=== PATIENT | female | born 1960 | race Caucasian/White ===

== ENCOUNTER 2016-07-02 22:12 | Emergency (ER) | payer MEDICAID ==
[~2016-07-02] VITALS: Ht 165.1 cm; Wt 65.0 kg
[~2016-07-02 22:12] MED LIST: IBUP100T3
[2016-07-02 23:40] LABS: BLOOD UREA NITROGEN 5 mg/dL (7-18)
[2016-07-03 04:55] VITALS: BP 121/62
== END 2016-07-03 04:56 | disposition home or self-care (01) ==
LOC: ED 07-03 04:49
DX: F10.120 Alcohol abuse with intoxication, uncomplicated (principal); Z88.0 Allergy status to penicillin
CPT/HCPCS: 36415; 70450; 71010; 72125; 80048; 80307; 82040; 85025; 93005

== ENCOUNTER 2016-07-21 20:02 | Emergency (ER) | payer MEDICAID ==
[~2016-07-21] VITALS: Ht 162.6 cm; Wt 55.0 kg
[2016-07-21] MEDS ORDERED: SODIUM CHLORIDE FLUSH 10ML SYR IVF ONE (21:00)
[2016-07-21] MEDS ORDERED: SODIUM CHLORIDE 0.9% 1,000ML IVBOLUS ONE (21:00)
[2016-07-21 21:26] LABS: ASPARTATE AMINO TRANSFERASE 32 U/L (15-37); BLOOD UREA NITROGEN 8 mg/dL (7-18)
[2016-07-21 23:45] VITALS: BP 104/62
== END 2016-07-21 23:47 | disposition home or self-care (01) ==
LOC: ED 23:07
DX: S09.90XA Unspecified injury of head, initial encounter (principal); S16.1XXA Strain of muscle, fascia and tendon at neck level, initial encounter; R10.13 Epigastric pain; Y04.0XXA Assault by unarmed brawl or fight, initial encounter; Y93.89 Activity, other specified; Y92.410 Unspecified street and highway as the place of occurrence of the external cause; Y99.8 Other external cause status
CPT/HCPCS: 36415; 70450; 71020; 72125; 76700; 80053; 80307; 83690; 85025; J7030; 96360

== ENCOUNTER 2017-01-04 10:37 | Inpatient (IN) | payer MEDICAID ==
[~2017-01-04] VITALS: Ht 162.6 cm; Wt 53.6 kg
[2017-01-04] MEDS ORDERED: SODIUM CHLORIDE 0.9% 1,000ML IVBOLUS ONE ×2 (12:30)
[2017-01-04 12:51] LABS: IS PT STATUS REG ER OR PRE ER? YES
[2017-01-04 12:54] LABS: DIFF TOTAL CELLS COUNTED 100 CELL DIFF; HEMATOCRIT 48.5 % (34.6-47.8); HEMOGLOBIN 16.6 g/dL (11.7-16.4); WHITE BLOOD COUNT 4.4 x10^3/uL (3.4-10)
[2017-01-04 12:58] LABS: ANISOCYTOSIS 1+; VERIFY COUNTS? YES
[2017-01-04 13:01] LABS: LARGE PLATELETS 1+
[2017-01-04 13:20] LABS: ASPARTATE AMINO TRANSFERASE 92 U/L (15-37); BLOOD UREA NITROGEN 4 mg/dL (7-18)
[2017-01-04] MEDS ORDERED: LORazepam 1MG TABLET ONE (17:24)
[2017-01-04] MEDS ORDERED: LORazepam 1MG TABLET PO ONE (17:30)
[2017-01-04] MEDS ORDERED: LORazepam 2 MG/ML, 1ML ONE (18:57)
[2017-01-04] MEDS ORDERED: LORazepam 2 MG/ML, 1ML IVPush PRN ×2 (19:00→20:00)
[2017-01-04] MEDS ORDERED: THIAMINE IV ONE (19:30)
[2017-01-04] MEDS ORDERED: MAGNESIUM SULFATE IV ONE (19:30)
[2017-01-04] MEDS ORDERED: [UNRECOGNIZED DRUG - OTHER] IV ONE (19:30)
[2017-01-04] MEDS ORDERED: MVI ADULT IV ONE (19:30)
[2017-01-04] MEDS ORDERED: THIAMINE 100 MG, MVI ADULT 10 ML, FOLIC ACID 1 MG in D5%-0.9% NACL 1,000 ML IV SCH (20:00)
[2017-01-04] MEDS ORDERED: ONDANSETRON 2MG/ML, 2ML IVPush PRN (20:00)
[2017-01-04] MEDS ORDERED: hydrALAzine 20 MG/ML, 1ML IVPush PRN (20:00)
[2017-01-04 21:00] VITALS: BP 147/76
[2017-01-04] MEDS ORDERED: THIAMINE 100 MG, MVI ADULT 10 ML in D5%-0.9% NACL 1,000 ML IV SCH (21:01)
[2017-01-04] MEDS: FOLIC ACID 1 MG TABLET PO SCH (22:13)
[2017-01-04] MEDS: ENOXAPARIN 40 MG/0.4 ML SQ SCH (22:13)
[2017-01-04] MEDS: D5%-0.9% NACL 1,000 ML IV SCH (23:54)
[2017-01-05 01:48] VITALS: BP 150/73
[2017-01-05 05:40] LABS: HEMATOCRIT 38.4 % (34.6-47.8); HEMOGLOBIN 13.3 g/dL (11.7-16.4); WHITE BLOOD COUNT 5.1 x10^3/uL (3.4-10)
[2017-01-05 05:49] LABS: ASPARTATE AMINO TRANSFERASE 77 U/L (15-37); BLOOD UREA NITROGEN 4 mg/dL (7-18)
[2017-01-05] MEDS: D5%-0.9% NACL 1,000 ML IV SCH (05:57)
[2017-01-05 06:25] LABS: DIFF TOTAL CELLS COUNTED 100 CELL DIFF
[2017-01-05 06:51] LABS: VERIFY COUNTS? YES
[2017-01-05 06:53] LABS: ANISOCYTOSIS 1+
[2017-01-05 07:46] VITALS: BP 152/74
[2017-01-05] MEDS: FOLIC ACID 1 MG TABLET PO SCH (09:48)
[2017-01-05] MEDS: ACETAMINOPHEN 325 MG TABLET PO PRN ×3 (09:51→19:36)
[2017-01-05] MEDS ORDERED: POTASSIUM CHLORIDE 40 MEQ in D5%-0.9% NACL 1,000 ML IV SCH (10:53)
[2017-01-05] MEDS ORDERED: MAGNESIUM SULFATE PMX 2GM/50ML 50 ML IV ONE (11:00)
[2017-01-05] MEDS: CHLORDIAZEPOXIDE 25 MG CAPSULE PO SCH ×3 (11:55→20:59)
[2017-01-05 13:56] VITALS: BP 153/74
[2017-01-05] MEDS: POTASSIUM CHLORIDE 40 MEQ in D5%-0.9% NACL 1,000 ML IV SCH ×2 (17:11→23:38)
[2017-01-05] MEDS ORDERED: THIAMINE 100 MG, MVI ADULT 10 ML in D5%-0.9% NACL 1,000 ML IV SCH (19:30)
[2017-01-05 20:00] VITALS: BP 130/72
[2017-01-05] MEDS: ENOXAPARIN 40 MG/0.4 ML SQ SCH (20:59)
[2017-01-06 02:00] VITALS: BP 139/77
[2017-01-06 05:39] LABS: HEMATOCRIT 39.3 % (34.6-47.8); HEMOGLOBIN 13.6 g/dL (11.7-16.4); WHITE BLOOD COUNT 3.7 x10^3/uL (3.4-10)
[2017-01-06 06:15] LABS: ASPARTATE AMINO TRANSFERASE 51 U/L (15-37); BLOOD UREA NITROGEN 4 mg/dL (7-18)
[2017-01-06 07:38] VITALS: BP 147/87
[2017-01-06] MEDS: POTASSIUM CHLORIDE 40 MEQ in D5%-0.9% NACL 1,000 ML IV SCH ×2 (07:46→19:36)
[2017-01-06] MEDS: FOLIC ACID 1 MG TABLET PO SCH (08:10)
[2017-01-06] MEDS: CHLORDIAZEPOXIDE 25 MG CAPSULE PO SCH (08:10)
[2017-01-06] MEDS: THIAMINE 100MG TABLET PO SCH (08:10)
[2017-01-06] MEDS: POTASSIUM CHLORIDE 20 MEQ TAB.ER.PRT PO SCH ×2 (08:10→17:59)
[2017-01-06] MEDS: NEUTRA PHOS K 250 MG TABLET PO SCH ×3 (08:10→21:00)
[2017-01-06] MEDS: MULTIVITAMIN 1 TABLET PO SCH (08:10)
[2017-01-06 12:40] VITALS: BP 147/78
[2017-01-06] MEDS: ACETAMINOPHEN 325 MG TABLET PO PRN ×2 (16:07→21:16)
[2017-01-06 18:48] VITALS: BP 136/61
[2017-01-06] MEDS: ENOXAPARIN 40 MG/0.4 ML SQ SCH (21:01)
[2017-01-07] MEDS: POTASSIUM CHLORIDE 40 MEQ in D5%-0.9% NACL 1,000 ML IV SCH ×2 (02:31→10:35)
[2017-01-07 02:49] VITALS: BP 146/76
[2017-01-07 05:50] LABS: BLOOD UREA NITROGEN 5 mg/dL (7-18)
[2017-01-07 05:53] LABS: ASPARTATE AMINO TRANSFERASE 75 U/L (15-37)
[2017-01-07 06:35] VITALS: BP 160/77
[2017-01-07] MEDS: ACETAMINOPHEN 325 MG TABLET PO PRN ×2 (08:06→19:54)
[2017-01-07] MEDS: MULTIVITAMIN 1 TABLET PO SCH (08:06)
[2017-01-07] MEDS: THIAMINE 100MG TABLET PO SCH (08:06)
[2017-01-07] MEDS: FOLIC ACID 1 MG TABLET PO SCH (08:06)
[2017-01-07] MEDS: POTASSIUM CHLORIDE 20 MEQ TAB.ER.PRT PO SCH (08:06)
[2017-01-07 12:45] VITALS: BP 141/79
[2017-01-07] MEDS: ENOXAPARIN 40 MG/0.4 ML SQ SCH (19:56)
[2017-01-07 20:00] VITALS: BP 135/72
[2017-01-08 01:25] VITALS: BP 150/80
[2017-01-08] MEDS ORDERED: THIA100T6 PO (07:40)
[2017-01-08] MEDS ORDERED: FOLI-17 PO (07:40)
[2017-01-08] MEDS ORDERED: MULT1TAB60 PO (07:40)
[2017-01-08 07:52] VITALS: BP 154/84
[2017-01-08] MEDS ORDERED: MAGNESIUM SULFATE PMX 4GM/100M 100 ML IV ONE (08:00)
[2017-01-08] MEDS: FOLIC ACID 1 MG TABLET PO SCH (08:49)
[2017-01-08] MEDS: MULTIVITAMIN 1 TABLET PO SCH (08:49)
[2017-01-08] MEDS: THIAMINE 100MG TABLET PO SCH (08:50)
[2017-01-08] MEDS: ACETAMINOPHEN 325 MG TABLET PO PRN (08:59)
[2017-01-08 13:04] VITALS: BP 152/85
== END 2017-01-08 15:17 | disposition home or self-care (01) | DRG 897 ==
LOC: ED 19:33 → EDIP 19:37 → SUATTDRO 19:42 → 4WST 20:56 → DCLOUNGE 01-08 15:05
PROVIDERS: ADMIT Hospitalist; ATTEND Hospitalist
DX: F10.239 Alcohol dependence with withdrawal, unspecified (principal); F10.220 Alcohol dependence with intoxication, uncomplicated; D69.6 Thrombocytopenia, unspecified; T68.XXXA Hypothermia, initial encounter; E44.1 Mild protein-calorie malnutrition; E87.0 Hyperosmolality and hypernatremia; E83.39 Other disorders of phosphorus metabolism; E83.42 Hypomagnesemia; D75.89 Other specified diseases of blood and blood-forming organs; Z68.20 Body mass index [BMI] 20.0-20.9, adult; E87.6 Hypokalemia; F17.210 Nicotine dependence, cigarettes, uncomplicated; G89.29 Other chronic pain; I10 Essential (primary) hypertension; K70.9 Alcoholic liver disease, unspecified; Y90.8 Blood alcohol level of 240 mg/100 ml or more; Z86.73 Personal history of transient ischemic attack (TIA), and cerebral infarction without residual deficits; I25.2 Old myocardial infarction; X31.XXXA Exposure to excessive natural cold, initial encounter; Z88.0 Allergy status to penicillin
CPT/HCPCS: 36415; 71010; 80053; 80307; 82607; 82746; 82962; 83735; 84100; 84443; 84484; 85025; 93005; 96361; 96374; J1650; J3411; J3475; J3480; J7042; G0479; J2060; J7030

== ENCOUNTER 2017-04-25 16:25 | Emergency (ER) | payer MEDICAID ==
[~2017-04-25] VITALS: Ht 162.6 cm; Wt 46.4 kg
[~2017-04-25 16:25] MED LIST changes: +FOLI-17 PO; +MULT1TAB60 PO; +THIA100T6 PO
[2017-04-25 18:21] VITALS: BP 127/63
== END 2017-04-25 18:33 | disposition home or self-care (01) ==
LOC: ED 18:20
DX: S00.83XA Contusion of other part of head, initial encounter (principal); S79.911A Unspecified injury of right hip, initial encounter; F10.120 Alcohol abuse with intoxication, uncomplicated; M25.511 Pain in right shoulder; Y08.89XA Assault by other specified means, initial encounter; Y93.89 Activity, other specified; Y92.89 Other specified places as the place of occurrence of the external cause; Y99.8 Other external cause status
CPT/HCPCS: 70450; 70486; 99284

== ENCOUNTER 2018-03-30 21:15 | Emergency (ER) | payer MEDICAID ==
[~2018-03-30] VITALS: Ht 160 cm; Wt 55.0 kg
[~2018-03-30 21:15] MED LIST changes: +AMOX1TAB64 PO; +DOXY100C2 PO; +IBUP200C8 PO; +MOXI3DRO2 EACHEYE; +NEO/3.5O7 EACHEYE; -THIA100T6 PO; +THIA100T67 PO
--- NOTE | 2018-03-30 21:37 | NUR ---
PT PLACED ON HEART MONITOR, BP CUFF, PULSE OX. PT WITH COOL EXTREMITIES, SHEET WITH CARL WARMER PROVIDED. CALL LIGHT WITHIN REACH. PT VERY INTOXICATED BUT A/O X 4. PT TEARFUL AT TIMES, STATES SHE DRINKS B/C OF HER PAIN. HX OF MULTIPLE INJURIES WITH CHRONIC PAIN.
--- NOTE | 2018-03-30 22:00 | NUR ---
REPORT TO CULLEN MONTALVO, TRANSFER OF CARE AT THIS TIME.
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
[2018-03-30] MEDS ORDERED: LIDOCAINE 2%, 20ML INFIL ONE (23:00)
[2018-03-30] MEDS ORDERED: IBUPROFEN 800 MG TABLET ONE (23:10)
[2018-03-30] MEDS ORDERED: LIDOCAINE-MPF 1%, 5ML ONE ×2 (23:10→23:56)
--- NOTE | 2018-03-30 23:16 | NUR ---
patient in bed. awaiting finger help and getting more coherent and oriented as alcohol metabolizing. rails up. monitor. got lidocaine for .
[2018-03-30] MEDS ORDERED: BUPIVACAINE 0.25% ONE (23:56)
[2018-03-31] MEDS ORDERED: IBUPROFEN 200 MG TABLET PO ONE
--- NOTE | 2018-03-31 01:42 | NUR ---
pa in room manually manipulating finger.
--- NOTE | 2018-03-31 01:59 | NUR ---
patient comfortable and sleeping. awaiting repeat xray finger.
--- NOTE | 2018-03-31 02:27 | NUR ---
radiology here to take images of hand.
--- NOTE | 2018-03-31 02:37 | NUR ---
pa in room manually manipulating hand with radiology at bedside. patient tolerating well.
[2018-03-31 03:12] VITALS: BP 118/78
--- NOTE | 2018-03-31 03:13 | NUR ---
discharge instructions provided for patient, shows understanding.
--- NOTE | 2018-03-31 03:29 | NUR ---
patient has ulnar guttar splint on, RICE teaching done and follow up teaching regarding ortho care given. got her clothes as hers were wet from a fall and got her a cab voucer to record st.
== END 2018-03-31 03:30 | disposition home or self-care (01) ==
LOC: ED 23:57
DX: S63.296A Dislocation of distal interphalangeal joint of right little finger, initial encounter (principal); F10.120 Alcohol abuse with intoxication, uncomplicated; Z72.9 Problem related to lifestyle, unspecified; I10 Essential (primary) hypertension; Z86.73 Personal history of transient ischemic attack (TIA), and cerebral infarction without residual deficits; X58.XXXA Exposure to other specified factors, initial encounter; Y93.89 Activity, other specified; Y92.89 Other specified places as the place of occurrence of the external cause; Y99.8 Other external cause status
CPT/HCPCS: 26770; 73140; 93005; 99284; J3490; 29130; 99283

== ENCOUNTER 2019-01-19 21:07 | Emergency (ER) | payer MEDICAID ==
[~2019-01-19 21:07] MED LIST changes: +MOXI3DRO19 EACHEYE; -MOXI3DRO2 EACHEYE
[2019-01-19] MEDS ORDERED: DEXAMETHASONE 4 MG TABLET ONE (23:17)
[2019-01-20] MEDS ORDERED: MAALOX/HYOSCYAMINE/LIDOCAINE 45 ML BTL ONE (00:35)
[2019-01-20 14:23] LABS: ALANINE AMINOTRANSFERASE 17 U/L (12-78); ALBUMIN 3.4 g/dL (3.4-5.0); ALKALINE PHOSPHATASE 102 U/L (45-117); ANION GAP 9 mmol/L (5-15); BILIRUBIN,TOTAL 0.2 mg/dL (0.2-1.0); CALCIUM 8.6 mg/dL (8.5-10.1); CHLORIDE 116 mmol/L (98-107); CREATININE 0.53 mg/dL (0.55-1.02); TOTAL PROTEIN 7.9 g/dL (6.4-8.2)
[2019-01-20 15:28] LABS: MEAN CORPUSCULAR HEMOGLOBIN 31.9 pg (27.0-34.8); MEAN CORPUSCULAR HGB CONC 32.4 g/dL (32.4-35.8); MEAN CORPUSCULAR VOLUME 98.5 fL (80-100); MEAN PLATELET VOLUME 8.6 fL (7.4-10.4); NEUTROPHILS % (AUTO) 69 % (42-75); PLATELET COUNT 248 x10^3/uL (130-400); RED BLOOD COUNT 3.97 x10^6/uL (3.82-5.3); RED CELL DISTRIBUTION WIDTH 18.3 % (9.6-15.2)
[2019-01-20 15:29] LABS: BASOPHILS # (AUTO) 0.12 x10^3/uL (0-0.1); BASOPHILS % (AUTO) 1 % (0-1); EOSINOPHILS # (AUTO) 0.09 x10^3/uL (0-0.4); EOSINOPHILS % (AUTO) 1 % (1-7); LYMPHOCYTES # (AUTO) 2.32 x10^3/uL (1-3.4); LYMPHOCYTES % (AUTO) 24 % (22-44); MD NO; MONOCYTES # (AUTO) 0.52 x10^3/uL (0.2-0.8); MONOCYTES % (AUTO) 5 % (2-9); NEUTROPHILS # (AUTO) 6.79 x10^3/uL (1.8-6.8)
== END 2019-01-20 01:54 ==
LOC: ED 01-20 01:00
DX: K29.20 Alcoholic gastritis without bleeding (principal); F10.220 Alcohol dependence with intoxication, uncomplicated; Y90.0 Blood alcohol level of less than 20 mg/100 ml; I10 Essential (primary) hypertension; I25.2 Old myocardial infarction
CPT/HCPCS: 36415; 71046; 80053; 80307; 83690; 83880; 85025; 99284

== ENCOUNTER 2019-02-24 08:27 | Emergency (ER) | payer MEDICAID ==
[~2019-02-24] VITALS: Ht 162.6 cm; Wt 54.0 kg
--- NOTE | 2019-02-24 09:23 | NUR ---
BEREAVEMENT COUNSELOR: PT TO ROOM FROM [facility]
[2019-02-24 09:36] LABS: MEAN CORPUSCULAR HEMOGLOBIN 31.9 pg (27.0-34.8); MEAN CORPUSCULAR HGB CONC 33.3 g/dL (32.4-35.8); MEAN CORPUSCULAR VOLUME 95.7 fL (80-100); MEAN PLATELET VOLUME 8.5 fL (7.4-10.4); PLATELET COUNT 194 x10^3/uL (130-400); RED BLOOD COUNT 4.02 x10^6/uL (3.82-5.3); RED CELL DISTRIBUTION WIDTH 17.4 % (9.6-15.2)
[2019-02-24 09:37] LABS: ALANINE AMINOTRANSFERASE 26 U/L (12-78); ALBUMIN 3.5 g/dL (3.4-5.0); ANION GAP 11 mmol/L (5-15); CALCIUM 8.7 mg/dL (8.5-10.1); CHLORIDE 101 mmol/L (98-107)
[2019-02-24 09:40] LABS: ALKALINE PHOSPHATASE 135 U/L (45-117); BILIRUBIN,TOTAL 1.4 mg/dL (0.2-1.0); CREATININE 0.68 mg/dL (0.55-1.02); TOTAL PROTEIN 8.4 g/dL (6.4-8.2)
[2019-02-24 10:05] LABS: MD YES
[2019-02-24 10:07] LABS: MICROSCOPIC AUTO
[2019-02-24 10:08] LABS: ANISOCYTOSIS 1+; BANDS%(MANUAL) 12 % (0-7); LYMPH#(MANUAL) 0.23 x10^3/uL (1-3.4); LYMPHS% (MANUAL) 1 % (22-44); METAMYELOCYTES# (MANUAL) 0.23 x10^3/uL (0-0); METAMYELOCYTES% (MANUAL) 1 % (0-1); MONOS#(MANUAL) 1.13 x10^3/uL (0.3-2.7); MONOS% (MANUAL) 5 % (2-9); SEG#(MANUAL) 18.23 x10^3/uL (1.8-6.8); SEGS% (MANUAL) 81 % (42-75)
[2019-02-24 10:09] LABS: <PLATELET ESTIMATE> ADEQUATE; <PLT MORPHOLOGY> NORMAL PLT MORPH
[2019-02-24 10:14] LABS: CULTURE INDICATED? YES
[2019-02-24] MEDS ORDERED: MORPHINE SULFATE 4 MG/ML, 1ML ONE (10:56)
[2019-02-24] MEDS ORDERED: ONDANSETRON 2MG/ML, 2ML ONE (10:56)
[2019-02-24] MEDS ORDERED: ONDANSETRON 2MG/ML, 2ML IVPush ONE (11:00)
[2019-02-24] MEDS ORDERED: SODIUM CHLORIDE 0.9% 1,000ML IVBOLUS ONE (11:00)
[2019-02-24] MEDS ORDERED: MORPHINE SULFATE 4 MG/ML, 1ML IVPush PRN (11:00)
--- NOTE | 2019-02-24 11:05 | NUR ---
PT IN BED, RESTING. DENIES ANY NEEDS OR CONCERNS AT THIS TIME. PT HAS DIFFICULT VENOUS ACCESS, ULTRASOUND IV PLACEMENT REQUESTED. CALL LIGHT IN REACH.
--- NOTE | 2019-02-24 11:50 | NUR ---
PT TO CT
[2019-02-24] MEDS ORDERED: OMNIPAQUE 350 MG/ML, 100ML BOTTLE ONE (12:01)
[2019-02-24] MEDS ORDERED: CEFTRIAXONE PMX 1GM/50ML 50 ML ONE (12:43)
[2019-02-24] MEDS ORDERED: AZITHROMYCIN 500 MG in SODIUM CHLORIDE 0.9% 250 ML IV ONE (13:00)
[2019-02-24] MEDS ORDERED: CEFTRIAXONE PMX 1GM/50ML 50 ML IV ONE (13:00)
[2019-02-24 15:22] VITALS: BP 141/76
== END 2019-02-24 15:24 | disposition home or self-care (01) ==
LOC: ED 12:14
DX: R11.2 Nausea with vomiting, unspecified (principal); E86.0 Dehydration; R19.7 Diarrhea, unspecified; J15.9 Unspecified bacterial pneumonia; I25.2 Old myocardial infarction; I10 Essential (primary) hypertension
CPT/HCPCS: 36415; 74021; 74177; 80053; 81001; 83690; 85025; 87040; 87086; 96361; 96365; 96366; 96367; 96375; 99284; J0456; J0696; J2270; J2405; J7030; J7050; Q9967

== ENCOUNTER 2019-03-16 10:21 | Emergency (ER) | payer MEDICAID ==
[~2019-03-16] VITALS: Ht 162.6 cm; Wt 54.8 kg
[2019-03-16 11:03] LABS: BASOPHILS # (AUTO) 0.08 x10^3/uL (0-0.1); BASOPHILS % (AUTO) 1 % (0-1); EOSINOPHILS # (AUTO) 0.12 x10^3/uL (0-0.4); EOSINOPHILS % (AUTO) 2 % (1-7); LYMPHOCYTES # (AUTO) 1.64 x10^3/uL (1-3.4); LYMPHOCYTES % (AUTO) 25 % (22-44); MD NO; MEAN CORPUSCULAR HEMOGLOBIN 30.2 pg (27.0-34.8); MEAN CORPUSCULAR HGB CONC 31.8 g/dL (32.4-35.8); MEAN CORPUSCULAR VOLUME 94.9 fL (80-100); MEAN PLATELET VOLUME 8.1 fL (7.4-10.4); MONOCYTES # (AUTO) 0.68 x10^3/uL (0.2-0.8); MONOCYTES % (AUTO) 10 % (2-9); NEUTROPHILS # (AUTO) 4.11 x10^3/uL (1.8-6.8); NEUTROPHILS % (AUTO) 62 % (42-75); PLATELET COUNT 464 x10^3/uL (130-400); RED BLOOD COUNT 3.86 x10^6/uL (3.82-5.3); RED CELL DISTRIBUTION WIDTH 16.8 % (9.6-15.2)
[2019-03-16 11:15] LABS: ALANINE AMINOTRANSFERASE 16 U/L (12-78); ALBUMIN 3.3 g/dL (3.4-5.0); CALCIUM 8.8 mg/dL (8.5-10.1); CREATININE 0.68 mg/dL (0.55-1.02)
[2019-03-16 11:17] LABS: ALKALINE PHOSPHATASE 131 U/L (45-117); BILIRUBIN,TOTAL 0.3 mg/dL (0.2-1.0); TOTAL PROTEIN 7.7 g/dL (6.4-8.2)
[2019-03-16 11:33] LABS: ANION GAP 10 mmol/L (5-15); CHLORIDE 111 mmol/L (98-107)
--- NOTE | 2019-03-16 12:56 | NUR ---
Pt to 25 from lobby
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
[2019-03-16] MEDS ORDERED: DIPHENHYDRAMINE 50 MG/ML, 1ML ONE (13:53)
[2019-03-16] MEDS ORDERED: PROCHLORPERAZINE 5 MG/ML, 2ML ONE (13:53)
[2019-03-16] MEDS ORDERED: KETOROLAC 30 MG/1 ML ONE (13:54)
[2019-03-16] MEDS ORDERED: DIPHENHYDRAMINE 50 MG/ML, 1ML IVPush ONE (14:00)
[2019-03-16] MEDS ORDERED: SODIUM CHLORIDE FLUSH 10ML SYR IVF ONE (14:00)
[2019-03-16] MEDS ORDERED: PROCHLORPERAZINE 5 MG/ML, 2ML IVPush ONE (14:00)
[2019-03-16] MEDS ORDERED: KETOROLAC 30 MG/1 ML IVPush ONE (14:00)
--- NOTE | 2019-03-16 14:06 | NUR ---
MEDICATED PER ORDERS, IV ESTABLISHED, OFF TO CT.
--- NOTE | 2019-03-16 14:22 | NUR ---
BREAK RN: PT RTD FROM CT. VSS, NAD NOTED. PT VERBALIZES PAIN NOW 08/08. CALL LIGHT W/I REACH
[2019-03-16 14:23] VITALS: BP 164/65
[2019-03-16] MEDS ORDERED: OMNIPAQUE 350 MG/ML, 75ML BOTTLE ONE (15:21)
== END 2019-03-16 15:13 | disposition home or self-care (01) ==
LOC: ED 14:33
DX: G43.911 Migraine, unspecified, intractable, with status migrainosus (principal); F17.200 Nicotine dependence, unspecified, uncomplicated; I10 Essential (primary) hypertension; I25.2 Old myocardial infarction
CPT/HCPCS: 36415; 70481; 80053; 85025; 96374; 96375; 99284; J0780; J1200; J1885; Q9967

== ENCOUNTER 2019-03-17 22:23 | Emergency (ER) | payer MEDICAID ==
[~2019-03-17] VITALS: Ht 162.6 cm; Wt 58.1 kg
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
[2019-03-18] MEDS ORDERED: ACETAMINOPHEN 325 MG TABLET PO ONE
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
[2019-03-18] MEDS ORDERED: ACETAMINOPHEN 325 MG TABLET ONE (00:03)
[2019-03-18 00:37] VITALS: BP 124/78
== END 2019-03-18 00:39 | disposition home or self-care (01) ==
LOC: ED 23:56
DX: G89.11 Acute pain due to trauma (principal); M25.511 Pain in right shoulder; R51 Headache; I10 Essential (primary) hypertension; I25.2 Old myocardial infarction; F17.200 Nicotine dependence, unspecified, uncomplicated; Z86.73 Personal history of transient ischemic attack (TIA), and cerebral infarction without residual deficits; W01.0XXA Fall on same level from slipping, tripping and stumbling without subsequent striking against object, initial encounter; Y93.89 Activity, other specified; Y92.89 Other specified places as the place of occurrence of the external cause; Y99.8 Other external cause status
CPT/HCPCS: 99283

== ENCOUNTER 2019-03-19 23:09 | Emergency (ER) | payer MEDICAID ==
[~2019-03-19] VITALS: Ht 167.6 cm; Wt 72.0 kg
[2019-03-20] MEDS ORDERED: DIPH,PERTUSS(ACELL),TET VAC/PF 0.5 ML IM-VACC ONE ×2 (01:39)
--- NOTE | 2019-03-20 01:49 | NUR ---
PT D/C AND UNCOOPERATIVE ON LEAVING PREMESIS. SECURITY NOTIFIED FOR ASSISTANCE OF PT FROM ROOM TO D/C DESK.
[2019-03-20 01:51] VITALS: BP 111/91
== END 2019-03-20 01:55 | disposition home or self-care (01) ==
LOC: ED 23:49
DX: S06.0X0A Concussion without loss of consciousness, initial encounter (principal); S01.81XA Laceration without foreign body of other part of head, initial encounter; F10.120 Alcohol abuse with intoxication, uncomplicated; F17.200 Nicotine dependence, unspecified, uncomplicated; I10 Essential (primary) hypertension; I25.2 Old myocardial infarction; Y90.0 Blood alcohol level of less than 20 mg/100 ml; Y04.8XXA Assault by other bodily force, initial encounter; Y93.89 Activity, other specified; Y92.89 Other specified places as the place of occurrence of the external cause; Y99.8 Other external cause status
CPT/HCPCS: 70450; 90471; 90715; 99284